=== PATIENT | male | born 1995 | race Caucasian/White ===

== ENCOUNTER 2023-11-24 17:34 | Emergency (ER) | payer SELFPAY ==
[2023-11-24 17:35] VITALS: BP 154/74; PULSE 72; RESP 18; TEMP 36.8; O2SAT 99
--- NOTE | 2023-11-24 17:39 | PC.NURSE ---
Pt states he is going to go to urgent care instead. Leaves in NAD.
== END 2023-11-24 18:50 | disposition left against medical advice (07) ==
PROVIDERS: Emergency Provider Student in an Organized Health Care Education/Training Program
DX: M25.572 Pain in left ankle and joints of left foot (principal)
CPT/HCPCS: 99199